=== PATIENT | female | born 1990 | race Caucasian/White ===

== ENCOUNTER → 2023-10-06 11:14 | Outpatient (CLI) | payer OTHER, SELFPAY ==
[2023-10-06 13:59] LABS: Progesterone, Total 7.36 ng/mL
== END ==
LOC: LAB 11:15
PROVIDERS: PCP Family Medicine; Referring Provider Obstetrics & Gynecology; Visit Provider Obstetrics & Gynecology
DX: Z87.42 Personal history of other diseases of the female genital tract (principal)
CPT/HCPCS: 36415; 84144

== ENCOUNTER → 2023-10-18 08:54 | Outpatient (CLI) | payer OTHER, SELFPAY ==
[2023-10-18 10:26] LABS: HCG Quantitative /Beta subunit 193.4 mIU/mL
== END ==
LOC: LAB 08:55
PROVIDERS: PCP Family Medicine; Referring Provider Obstetrics & Gynecology; Visit Provider Obstetrics & Gynecology
DX: Z87.42 Personal history of other diseases of the female genital tract (principal)
CPT/HCPCS: 36415; 84144; 84702

== ENCOUNTER → 2023-10-20 09:15 | Outpatient (CLI) | payer OTHER, SELFPAY ==
[2023-10-20 10:48] LABS: HCG Quantitative /Beta subunit 479.6 mIU/mL
== END ==
PROVIDERS: PCP Family Medicine; Referring Provider Obstetrics & Gynecology; Visit Provider Obstetrics & Gynecology
DX: Z87.42 Personal history of other diseases of the female genital tract (principal)
CPT/HCPCS: 36415; 84702

== ENCOUNTER → 2023-11-13 16:17 | Outpatient (CLI) | payer OTHER, SELFPAY ==
--- NOTE | 2023-11-13 16:17 | DI.US.S_ITS ---
PROCEDURE: US OB <= 14 WEEKS FETUS INDICATIONS: dating and viability OUTSIDE/PRIOR DATING DATA: Last menstrual period (LMP): 09/15/2023. LMP-based estimated date of delivery (CECE): 06/21/2024. First dating scan (date and location): 11/13/2023. Estimated date of delivery (CECE) from first dating scan: 06/25/2024. TECHNIQUE: Real-time scanning was performed of the fetus and maternal pelvic organs, with image documentation. Endovaginal scanning was also performed to better visualize the fetus and maternal ovaries. COMPARISON: None. FINDINGS: Embryo: Single live intrauterine is identified with crown-rump length measuring 1.6 cm corresponding to 7 weeks 6 days. Heart rate: 153 beats per minute Maternal organs: Ovaries within normal limits. IMPRESSION: Single live intrauterine with gestational age today of 7 weeks 6 days. Recommend followup imaging at 20-22 weeks for dates and anatomy. We strive to produce accurate, complete, and clear reports of imaging services. To assist us in improving patient care, this report was composed using standard report templates and voice recognition software. Therefore, it may contain abnormal punctuation, insertions and/or omissions. Occasional wrong-word or sound-alike substitutions may occur. Though we review the report and make efforts to correct it, we do recommend that the report be read carefully in proper context to recognize any text inaccuracies. Dictated by: Gaviota Wing M.D. on 11/14/2023 at 8:39 Approved by: Gaviota Wing M.D. on 11/14/2023 at 8:41
== END ==
PROVIDERS: PCP Family Medicine; Referring Provider Obstetrics & Gynecology; Visit Provider Obstetrics & Gynecology
DX: Z34.80 Encounter for supervision of other normal pregnancy, unspecified trimester (principal); Z3A.01 Less than 8 weeks gestation of pregnancy
CPT/HCPCS: 76801; 76830

== ENCOUNTER → 2023-12-13 16:13 | Outpatient (CLI) | payer OTHER, SELFPAY ==
[2023-12-14 14:35] LABS: Urine N gonorrhoeae NOT DETECTED
[2023-12-14 14:37] LABS: Urine Chlamydia NOT DETECTED
== END ==
PROVIDERS: PCP Family Medicine; Visit Provider Obstetrics & Gynecology
DX: Z34.81 Encounter for supervision of other normal pregnancy, first trimester (principal); Z11.3 Encounter for screening for infections with a predominantly sexual mode of transmission
CPT/HCPCS: 87491; 87591

== ENCOUNTER → 2023-12-13 16:17 | Outpatient (CLI) | payer OTHER, SELFPAY ==
[2023-12-13 17:27] LABS: Add Manual Diff / Slide Review NO; Basophils Absolute Auto 100 /uL (0-100); Basophils Percent Auto 0.7 % (0-2); Eosinophils Absolute Auto 100 /uL (0-450); Eosinophils Percent Auto 1.3 % (2-4); Hematocrit 34.9 % (36-46); Hemoglobin 12.2 g/dL (12.0-16.0); Lymphocytes Absolute Auto 3000 /uL (1100-4500); Lymphocytes Percent Auto 34.3 % (25-40); Mean Corpuscular HGB Conc 35.1 % (30-36); Mean Corpuscular Hemoglobin 31.8 PG (26-34); Mean Corpuscular Volume 90.5 fL (80-100); Monocytes Absolute Auto 700 /uL (0-900); Neutrophils Absolute Auto 4800 /uL (1500-7000); Neutrophils Percent Auto 55.7 % (50-75); Platelet Count 253 X10^3/uL (150-400); Red Blood Cell Count 3.86 X10^6/uL (4.0-5.2); Red Cell Distribution Width 12.9 % (11.6-14.8); White Blood Cell Count 8.7 X10^3/uL (4.5-11.0)
[2023-12-13 17:35] LABS: Natera Collection Specimen Collected
[2023-12-14 16:29] LABS: Hepatitis B Surface Antigen NEGATIVE s/c (NEGATIVE); Rubella Antibody IgG 40.5 IU/mL (>15)
[2023-12-14 16:45] LABS: HIV 1 & 2 Ab/Ag 4th Gen Combo NEGATIVE (NEGATIVE); Hep C Virus Ab w/Reflex Quant NEGATIVE s/c (NEGATIVE)
== END ==
PROVIDERS: PCP Family Medicine; Referring Provider Obstetrics & Gynecology; Visit Provider Obstetrics & Gynecology
DX: Z34.80 Encounter for supervision of other normal pregnancy, unspecified trimester (principal); Z34.81 Encounter for supervision of other normal pregnancy, first trimester; Z3A.12 12 weeks gestation of pregnancy
CPT/HCPCS: 36415; 80055; 86787; 86803; 86850; 86900; 86901; 87086; 87389

== ENCOUNTER → 2024-01-12 07:35 | Outpatient (CLI) | payer OTHER, SELFPAY | LOC: LAB 07:36 | PROVIDERS: PCP Family Medicine; Referring Provider Obstetrics & Gynecology; Visit Provider Obstetrics & Gynecology | DX: Z34.82 Encounter for supervision of other normal pregnancy, second trimester (principal); Z36.0 Encounter for antenatal screening for chromosomal anomalies; Z3A.16 16 weeks gestation of pregnancy | CPT/HCPCS: 36415; 82105 ==

== ENCOUNTER → 2024-02-08 14:23 | Outpatient (CLI) | payer OTHER, SELFPAY ==
--- NOTE | 2024-02-08 14:24 | DI.US.S_ITS ---
PROCEDURE: US OB >= 14 WEEKS FETUS INDICATIONS: 20 week anatomy OUTSIDE/PRIOR DATING DATA: Last menstrual period (LMP): 09/15/2023. LMP-based estimated date of delivery (CECE): 06/21/2024. First dating scan (date and location): 11/13/2023. Estimated date of delivery (CECE) from first dating scan: 06/25/2024. TECHNIQUE: Real-time scanning was performed of the fetus, with image documentation and biometric measurements. Endovaginal scanning: Not performed COMPARISON: 11/13/2023. FINDINGS: General: A single living intrauterine gestation is present. Presentation: Vertex. Placenta: Placental position is anterior , without previa. Amniotic fluid index: 16.2 cm, normal range is 5-24 cm. Single deepest vertical pocket is 4.9 cm. heart rate: 132 beats per minute. Maternal cervical canal: 4 cm long. Normal lower limit is 2.5 cm. biometrics: Biparietal diameter: 4.8 centimeter, 20 weeks 3 days Head circumference: 17.8 centimeters, 20 weeks 2 days Abdominal circumference: 16.3 centimeters, 21 weeks 2 days Femur length: 3.2 centimeters, 20 weeks 1 day Clinically estimated gestational age: 20 weeks 6 days Composite gestational age from present scan: 20 weeks 4 days Estimated weight and percentile: 373 grams, 38th percentile Anatomic survey: Neuro: Ventricles are non-dilated at less than 10 mm. Cisterna magna is normal at 3-11 mm. Cerebellum is normal in size and morphology. Nuchal skin fold: Normal at less than 6 mm between 14-21 weeks gestational age. Face: Nose and lips, facial profile are normal. Spine: No evidence for spina bifida. Heart: 4-chambered heart is present, with normal ventricular outflow tracts. Diaphragm: Diaphragm is intact. Stomach: Left-sided stomach is present. Kidneys: No hydronephrosis. Normal is less than 5 mm in 2nd trimester, less than 7 mm in 3rd trimester. Cord: 3-vessel cord has orthotopic insertion. Bladder: Normal in size. Extremities: All 4 extremities identified. IMPRESSION: Single living intrauterine . Normal anatomy survey. Estimated weight of 373 grams, 38th percentile. We strive to produce accurate, complete, and clear reports of imaging services. To assist us in improving patient care, this report was composed using standard report templates and voice recognition software. Therefore, it may contain abnormal punctuation, insertions and/or omissions. Occasional wrong-word or sound-alike substitutions may occur. Though we review the report and make efforts to correct it, we do recommend that the report be read carefully in proper context to recognize any text inaccuracies. Dictated by: Arley Arriaga M.D. on 02/08/2024 at 17:28 Approved by: Arley Arriaga M.D. on 02/08/2024 at 17:30
== END ==
PROVIDERS: PCP Family Medicine; Referring Provider Obstetrics & Gynecology; Visit Provider Obstetrics & Gynecology
DX: Z34.82 Encounter for supervision of other normal pregnancy, second trimester (principal); Z3A.20 20 weeks gestation of pregnancy
CPT/HCPCS: 76811

== ENCOUNTER → 2024-03-27 08:12 | Outpatient (CLI) | payer OTHER, SELFPAY ==
[2024-03-27 10:10] LABS: Hematocrit 32.4 % (36-46); Hemoglobin 11.6 g/dL (12.0-16.0)
[2024-03-27 10:21] LABS: GTT (PREG) 1 Hour PP 50gm Dose 80 mg/dL (76-139)
== END ==
PROVIDERS: Obstetrics & Gynecology; PCP Family Medicine; Referring Provider Obstetrics & Gynecology; Visit Provider Obstetrics & Gynecology
DX: O26.899 Other specified pregnancy related conditions, unspecified trimester (principal); Z3A.26 26 weeks gestation of pregnancy; Z67.91 Unspecified blood type, Rh negative
CPT/HCPCS: 36415; 82950; 85014; 85018; 86850

== ENCOUNTER → 2024-06-11 08:42 | Outpatient (CLI) | payer OTHER, SELFPAY | PROVIDERS: PCP Family Medicine; Visit Provider Obstetrics & Gynecology | DX: R82.998 Other abnormal findings in urine (principal) | CPT/HCPCS: 87077; 87086; 87147 ==

== ENCOUNTER 2024-06-19 00:45 | Inpatient (IN) | payer OTHER, SELFPAY ==
[2024-06-19] MEDS: AMPICILLIN 2,000 MG in SODIUM CHLORIDE 0.9% 100 ML 200 MG IV (01:33)
[2024-06-19] MEDS: LACTATED RINGERS 1,000 ML 100 ML IV (01:33)
[2024-06-19 01:41] VITALS: BP 115/73
[2024-06-19 01:41] LABS: Add Manual Diff / Slide Review NO; Basophils Absolute Auto 100 /uL (0-100); Eosinophils Absolute Auto 100 /uL (0-450); Eosinophils Percent Auto 1.5 % (2-4); Hematocrit 34.1 % (36-46); Hemoglobin 11.9 g/dL (12.0-16.0); Lymphocytes Absolute Auto 2000 /uL (1100-4500); Lymphocytes Percent Auto 25.3 % (25-40); Mean Corpuscular HGB Conc 34.8 % (30-36); Mean Corpuscular Hemoglobin 32.8 PG (26-34); Mean Corpuscular Volume 94.2 fL (80-100); Monocytes Absolute Auto 700 /uL (0-900); Monocytes Percent Auto 8.2 % (3-14); Neutrophils Absolute Auto 5200 /uL (1500-7000); Platelet Count 294 X10^3/uL (150-400); Red Blood Cell Count 3.62 X10^6/uL (4.0-5.2)
[2024-06-19] MEDS: LACTATED RINGERS 500 ML 1000 ML IV (05:22)
[2024-06-19] MEDS: AMPICILLIN 1,000 MG in SODIUM CHLORIDE 0.9% 100 ML 200 MG IV (06:23)
[2024-06-19] MEDS: FENT 2MCG/ML BUPIV 0.125% EPI 200 MCG/100 ML PLAST..BAG 6 MCG EPIDURAL (06:30)
--- NOTE | 2024-06-19 06:35 | PM.AN.REGBLK ---
Regional Block Pre-procedure PMH/ROS narrative: Healthy 34yr old requesting CSE for labor PSH/Anesthesia history narrative: parotid tumor excision and w.t. ASA Class: II Labs: Hct 34.1 % (36-46) L 06/19/24 01:22 Plt Count 294 X10^3/uL (150-400) 06/19/24 01:22 Medications: Current Medications Generic Name Dose Route Start Last Admin Trade Name Freq PRN Reason Stop Dose Admin Calcium Carbonate 1,000 mg 06/19/24 01:05 Calcium Carbonate 500 Mg Tab PO Q2HR PRN Dyspepsia Carboprost Tromethamine 250 mcg 06/19/24 01:05 Carboprost 250 Mcg/Ml Ampul IM Q90M PRN Bleeding Fentanyl 100 mcg 06/19/24 01:05 Fentanyl 100 Mcg/2 Ml Inj IV Q1H PRN Pain, Severe (7-10) Lactated Ringer's 1,000 mls @ 100 mls/hr 06/19/24 01:15 06/19/24 01:33 Lactated Ringers IV 06/19/24 11:14 100 mls/hr CONT PAUL Administration Oxytocin/Lactated Ringer's 30 unit in 500 mls @ 200 mls/hr 06/19/24 01:05 Oxytocin Premix IV CONT PRN Bleeding Protocol Tranexamic Acid 1,000 mg/ 100 mls @ 600 mls/hr 06/19/24 01:05 Sodium Chloride IV NOW PRN Bleeding Ampicillin Sodium 1,000 mg/ 100 mls @ 200 mls/hr 06/19/24 01:15 06/19/24 06:23 Sodium Chloride IV 200 mls/hr Q4H PAUL Administration Lidocaine HCl 20 ml 06/19/24 01:05 Lidocaine 1% 20 Ml INJ INTRA-OP PRN Post Delivery Methylergonovine Maleate 0.2 mg 06/19/24 01:05 Methylergonovine 0.2 Mg Tablet PO Q6HR PRN Heavy Bleeding Methylergonovine Maleate 0.2 mg 06/19/24 01:05 Methylergonovine 0.2 Mg/Ml Vial IM NOW PRN Bleeding Mineral Oil 30 ml 06/19/24 01:05 Mineral Oil 30 Ml Udc TOP PRN PRN Version Misoprostol 800 mcg 06/19/24 01:05 Misoprostol 200 Mcg Tablet OK NOW PRN Bleeding Misoprostol 400 mcg 06/19/24 01:05 Misoprostol 200 Mcg Tablet SL NOW PRN Bleeding Naloxone HCl 0.2 mg 06/19/24 01:05 Naloxone 0.4 Mg/Ml Vial IV Q2MIN PRN Opiate Reversal Ondansetron HCl 4 mg 06/19/24 01:05 Ondansetron 4 Mg/2 Ml Inj IV Q4HR PRN Nausea And Vomiting Oxytocin 10 unit 06/19/24 01:05 Oxytocin 10 Unit/Ml Vial IM NOW PRN Bleeding Allergies: Allergies Allergy/AdvReac Type Severity Reaction Status Date / Time No Known Drug Allergies Allergy Verified 06/19/24 02:51 --: Paresthesia with catheter placement. Turned catheter and pulled back once needle out and paresthesia disappeared Procedure Insertion date: 06/19/24 Insertion time: 06:11 Prep/Local: 1% lidocaine (chloroprep) Interspace: L3-4 Patient position: sitting Needle: 18 gauge Augustin Loss of resistance with: saline FRANCISCO at (cm): 7 Catheter placed at SKIN (cm): 13 Catheter in SPACE (cm): 6 Insertion: No Blood, No Paresthesia with insertion, No Paresthesia with injection and No Test dose reaction Initial Medications TEST DOSE time: 06:09 BOLUS DOSE time: 06:18 BOLUS DOSE (mL): 5 BOLUS DOSE med: 0.25% bupivacaine Infusion INFUSION: 0.125% bupivacaine and with fentanyl 2 mcg/mL Initial rate (mL/hr): 8 Subsequent interventions: 0650 4cc .25% marcaine 0725 5cc 2% lidocaine Post-procedure Anesthesia date START: 06/19/24 Anesthesia time START: 05:50 Anesthesia date END: 06/20/24 Anesthesia time END: 08:24 Post-procedure Anesthesia Assessment: Yes CV function: HR/BP stable, Yes Resp function: RR/sat/airway adequate, Yes Post-op hydration adequate, Yes Pain control adequate, Yes Nausea & vomiting absent, Yes Temperature > 36 C and Yes Mental status appropriate
[2024-06-19] MEDS: OXYTOCIN PREMIX 30 UNIT/500 ML PLAST..BAG 500 UNIT IV (08:30)
--- NOTE | 2024-06-19 08:56 | PM.OBHP.1 ---
OB HPI Date/Time Date of admission: 06/19/24 Date Patient Seen: 06/19/24 Time Patient Seen: 08:05 History of Present Condition Chief complaint: IUP, 39+0, SROM, GBS+, Rh- : 2 Para: 1 Estimated Date of Delivery: 06/26/24 Estimated Gestational Age (weeks): 39+0 Narrative: Shahnaz Colon is a 34 year old , admitted now at 39 weeks gestational age with spontaneous rupture of membranes with clear fluid shortly after midnight 06/18 - 06/19/2024. Patient has started having some irregular contractions and baby is doing well on the monitor. Patient's course has been largely uneventful with solid early dating and appropriate milestones throughout. She is Rh negative and received 28 week RhoGAM. She had a urine culture earlier in the which was positive for group B strep and is therefore presumed to be GBS positive. History of Present care: good care Dating criteria: LMP confirmed by 1st trimester US Ultrasounds: normal 1st trimester US and normal mid trimester US Obstetrical complications: none Medical complications: none Preadmission Labs Blood type: A (-) negative -: Antibody screen: positive (Due to RhoGAM), GBS status: positive, HBsAG: negative, HIV: negative and RPR/VDLR: negative -: Chlamydia screen: not detected and Gonorrhea screen: not detected -: Rubella: immune and Varicella: immune HCT: 34.1 HCAB: negative PAP: Normal Quad screen: Normal (AFP testing negative) Cell-free DNA: Low risk female 1 hr GTT: 80 Prior (ies) History: x1 Hx # Term Pregnancies: 1 Hx # Pregnancies: 0 Number of Living Children: 0 Multiple births: 0 Spontaneous abortions: 0 Ectopic pregnancies: 0 Elective abortions: 0 Evaluation Evaluation Baseline heart rate: 125 Variability: Moderate (11-25) monitor accelerations: Present Monitor Decelerations: Absent Contraction Frequency (minutes): 6 Uterine Contraction Intensity: Mild Category of Tracing: Reactive Status: Category l Dilation (cm): 10 (0750, 06/19/2024) Effacement (%): 100 Dilation: >/=5 cm Effacement: >/=80% station: +2 Position of cervix: anterior Consistency: soft Diehl score: 13 Non-invasive Membranes Rupture Test: positive [facility] Medical History (Updated 01/10/24 @ 08:21 by Ismael Mckoy MD) Wears contact lenses Chicken pox (~1991) Irregular menstrual cycle (~2020) Infertility (~2020) Surgical History (Updated 10/31/23 @ 11:02 by Hilda Silveira, LEONID) History of removal of skin mole Anesthesia Tumor of parotid gland (~2006) [facility] teeth removed (~2007) Family History (Updated 10/31/23 @ 11:05 by Hilda Silveira RN) Sister Congenital heart defect Grandfather Dementia Grandmother Parkinson's disease Grandfather Leukemia Grandmother Hyperlipidemia Dementia Social History marital status: number of children: 1 household members: children lives independently: Yes caregiver/support person: Yes housing: house pets and animals: No education level: master's degree occupational status: employed (works from home) current occupational exposures/hazards: No special jagruti needs: No travel history: recent ([place]) seatbelt use: always water heater temp set < 120 deg: Yes working smoke detector in home: Yes fire extinguisher in home: Yes carbon monox detector in home: Yes firearms in home: Yes firearms unloaded and locked: Yes do you feel safe at home: Yes Smoking Status: Never smoker second hand exposure: No alcohol intake: former (occasionally when not ) substance use type: does not use during the past year weight has: other (Back to pre-baby weight (daughter is 13 months old)) well-balanced diet: daily or most days daily servings fruits/ve or more times/day caffeine: Yes (Aware of 200mg limit) Type(s) of exercise: walking and weight lifting frequency: 5-6 times per week Meds Home Medications and Allergies Home Medications Medication Instructions Recorded Confirmed Type breast pump #1 ea 04/02/24 06/19/24 Rx breast pump #1 ea 04/02/24 06/19/24 Rx vit no.95-ferrous 1 tab PO DAILY 06/19/24 06/19/24 History fumarate 28 mg-folic acid 800 mcg tablet () Allergies Allergy/AdvReac Type Severity Reaction Status Date / Time No Known Drug Allergies Allergy Verified 06/19/24 02:51 Review of Systems Review of Systems Narrative: Problem-specific ROS positives included in HPI OB Exam Vital signs Blood Pressure: 115/73 Pulse Rate: 97 Respiratory Rate: 16 Temperature: 98.8 F [facility] Head: normal to inspection, normocephalic and atraumatic Eyes General: appearance normal, both eyes and all related structures Resp Effort & Inspection: normal respiratory effort and able to speak in complete sentences Auscultation: clear to auscultation bilaterally Cardio Rate: regular rate Rhythm: regular rhythm Heart Sounds: S1 normal, S2 normal and no murmurs Extremities Lower extremity: Yes normal to inspection GI Inspection: normal to inspection Palpation: Yes soft and Yes no hepatosplenomegaly Uterus Location (Fundal Height): 36 Estimated Weight (lbs): 7 Amniotic Fluid: clear Objective Labs 06/19/24 01:22 Labs: Laboratory Results - last 24 hr 06/19/24 01:22 WBC 8.0 RBC 3.62 L Hgb 11.9 L Hct 34.1 L MCV 94.2 MCH 32.8 MCHC 34.8 RDW 13.0 Plt Count 294 Neut % (Auto) 64.0 Lymph % (Auto) 25.3 [place] % (Auto) 8.2 Eos % (Auto) 1.5 L Baso % (Auto) 1.0 Neut # (Auto) 5200 Lymph # (Auto) 2000 [place] # (Auto) 700 Eos # (Auto) 100 Baso # (Auto) 100 Blood Type A Negative Antibody Screen Negative Assessment and Plan Assessment and Plan Assessment and Plan narrative: ASSESSMENT 1. Intrauterine , 39+ 0 weeks gestational age with SROM clear fluid 2. GBS positive status 3. Rh-negative status 4. Anemia in PLAN 1. Admit for labor and delivery 2. JAYNE as desired 3. See admission orders Time-Based Coding :: [TOTAL MINUTES] spent with patient and on the chart (including review of chart, obtaining history, exam, reviewing outside data, placing orders, documenting exam and treatment plan, and counseling patient) on [DATE].
--- NOTE | 2024-06-19 08:57 | P.PCNOB_ITS ---
Labor & Delivery Delivery date: 06/19/24 Delivery Time: 08:24 Intrapartal Events: None Cervical ripening method: none Induction method: none Delivery monitor: external FHT and external uterine Route of delivery: Episiotomy description: None L&D Laceration Description: Periurethral - 1st Degree and Perineal - 2nd Degree Delivery repair: chromic Estimated blood loss (mL): 350 Anesthesia Type: Epidural Complications: None Narrative: Following a 30 minutes 2nd stage, the patient delivered spontaneously over an intact perineum a viable female infant with Apgars of 8/9 and a weight of 3413 g (7 lb 8.4 oz). The father assisted with delivery the infant and announced the gender of the baby which was unknown to the point. No cord entanglement or shoulder dystocia was noted. Skin to skin contact was initiated immediately and delayed cord clamping performed. Once the umbilical cord was doubly clamped and cut, cord blood sample was obtained for routine studies. The placenta was then delivered with gentle cord traction and suprapubic countertraction. Inspection of the placenta showed it to be intact with central insertion of a three-vessel cord. Inspection the introitus showed a very superficial right-sided periurethral abrasion and a superficial second- degree perineal laceration. The perineal laceration was transverse and immediately inside of the vaginal introitus. Because of the location and nature of the laceration, ago P retractor was placed so as to fully BM visualize the laceration in the face of what was significant venous bleeding. The laceration was closed with 2-0 chromic in a running interlocking stitch and 3 additional puagks-it-zhums stitches of 2-0 chromic used to render the laceration completely hemostatic. Sponge, instrument, and needle count was correct at the end of the delivery process which was well tolerated by both mother and baby. [place] Baby 1: gender: Female Presentation: vertex Position: Left Occiput Anterior Placenta delivery description: Spontaneous Cord Vessel Description: 3 Vessels score (1 min): 8 score (5 min): 9 weight: 7 lb 8.39 oz Plan for aftercare: Routine care
[2024-06-19] MEDS: WITCH HAZEL/GLYCERIN PADS 1 EACH TOP (11:06)
[2024-06-19] MEDS: LANOLIN OINT 7 GM 1 APPLIC TOP (11:06)
[2024-06-19] MEDS: IBUPROFEN 600 MG TABLET PO ×2 (11:07→17:16)
[2024-06-19 16:20] VITALS: BP 115/73; PULSE 97; RESP 16; TEMP 37.1
[2024-06-20 06:21] LABS: Add Manual Diff / Slide Review NO; Basophils Absolute Auto 0 /uL (0-100); Basophils Percent Auto 0.5 % (0-2); Eosinophils Absolute Auto 100 /uL (0-450); Hematocrit 31.1 % (36-46); Hemoglobin 10.8 g/dL (12.0-16.0); Lymphocytes Absolute Auto 2500 /uL (1100-4500); Lymphocytes Percent Auto 25.3 % (25-40); Mean Corpuscular HGB Conc 34.7 % (30-36); Mean Corpuscular Hemoglobin 33.2 PG (26-34); Mean Corpuscular Volume 95.5 fL (80-100); Monocytes Absolute Auto 800 /uL (0-900); Monocytes Percent Auto 8.1 % (3-14); Neutrophils Absolute Auto 6300 /uL (1500-7000); Neutrophils Percent Auto 65.1 % (50-75); Platelet Count 270 X10^3/uL (150-400); Red Blood Cell Count 3.26 X10^6/uL (4.0-5.2); Red Cell Distribution Width 13.1 % (11.6-14.8); White Blood Cell Count 9.7 X10^3/uL (4.5-11.0)
--- NOTE | 2024-06-20 08:42 | P.DS_ITS ---
Discharge Providers Provider Date of admission: 06/19/24 00:45 Discharge Date: 06/20/24 Primary care physician: Karissa Horan DO Consults: 06/19/24 01:06 Consult to Anesthesiology Urgent Comment: Consulting Provider: Anesthesiologist Reason for consultation: Epidural 06/20/24 08:52 Consult to [employer] Routine Comment: Discharge provider: Ismael Mckoy MD Summary Hospital Course Date Patient Seen: 06/20/24 Time Patient Seen: 08:42 Diagnoses: Intrauterine gestation, 39+ 0 weeks, delivered by spontaneous vaginal Rh-negative status GBS positive status Hospital Course: Shahnaz was admitted with spontaneous rupture membranes in the early hours of 06/19/2024. No augmentation was required and she had an epidural placed prior to delivery at 8:24 a.m. a viable and vigorous female with a weight 3413 g (7 lb 8.7 oz) and Apgars of 8/9. Full details of the delivery are well summarized on my delivery note of that date. Following delivery both mother and baby have done extremely well with the mother experiencing prompt return of bowel and bladder function, she is ambulating independently, tolerating regular diet, and her pain is well relieved with oral pain medications. She will be discharged at this time to home after counseling regarding precautionary symptoms, limitations of activity, medications, plans for follow-up which will be in 6 weeks. Medications at discharge will include resumption of vitamins and she will use [id number] Tylenol and/or ibuprofen as needed for pain relief. Peripartum Data Infant Delivery Method: Natural Vaginal Laceration Description: Periurethral - 1st Degree and Perineal - 2nd Degree Episiotomy description: None Procedures: Continuous lumbar epidural Spontaneous vaginal with repair of second-degree perineal laceration complications: none 1: Gender: Female Disposition of : home Status at Discharge Cognitive/behavioral status at discharge: oriented Functional status at discharge: independent ambulation Overall status at discharge: patient is progressing back to baseline Time Spent with Patient Time attestation: Total time spent providing and/or coordinating discharge services: Time spent: Less than 30 minutes Objective Labs 06/20/24 06:01 Labs: Laboratory Results - last 24 hr 06/20/24 06:01 WBC 9.7 RBC 3.26 L Hgb 10.8 L Hct 31.1 L MCV 95.5 MCH 33.2 MCHC 34.7 RDW 13.1 Plt Count 270 Neut % (Auto) 65.1 Lymph % (Auto) 25.3 [place] % (Auto) 8.1 Eos % (Auto) 1.0 L Baso % (Auto) 0.5 Neut # (Auto) 6300 Lymph # (Auto) 2500 [place] # (Auto) 800 Eos # (Auto) 100 Baso # (Auto) 0 Maternal Bleed Negative Exam Const General: cooperative and comfortable Nutritional Appearance: average body habitus Orientation: alert and oriented x3 HENMT Head: normal to inspection, atraumatic and abrasion Face and sinus: face symmetric Eyes General: appearance normal, both eyes and all related structures Conjunctivae: conjunctivae normal Sclera: sclerae normal EOM: EOM intact bilaterally Neck Neck: normal visual inspection Resp Effort & Inspection: normal respiratory effort and able to speak in complete sentences GI Inspection: normal to inspection External Female Exam: other (No significant bleeding noted) Extrem General: no calf tenderness Psych Appearance: grossly normal Mental Status: mental status grossly normal Speech and Movement: speech and movement normal Mood: congruent mood Affect: normal affect Attitude: cooperative Thought Process: normal Thought Content: normal Judgment: judgment good Discharge Plan Discharge Plan Patient Disposition: Home Provider Discharge Comment: Please review the written instructions you received when you were discharged from the hospital. Your follow-up appointment is scheduled for 6 weeks after delivery and I forward to seeing you then. If however in the any issues, concerns, or questions, please contact me either through the office phone at [phone], or via the patient portal. Discharge orders & Medications Prescriptions: Continued (DME) breast pump Device See Rx Instructions .ROUTE .MEDSUPPLY Qty: 1 0RF Rx Instructions: double electric (DME) breast pump Device See Rx Instructions .ROUTE .MEDSUPPLY Qty: 1 0RF Rx Instructions: double electric PNV cmb#95-ferrous fumarate-FA [] 28 mg iron- 800 mcg Tablet 1 tab PO DAILY Follow up/Referrals: Ismael Mckoy MD [Physician] - 6 Weeks ([address] Mckoy on July 31 at 0900 am. ) Discharge Health Status Multidrug resistant organism: No MDRO Diet/Activity/Treatments Diet: Diet as Tolerated Activity: As tolerated Other treatments: Syee-ang-njajvgc Tylenol and/or ibuprofen may be used as needed for pain relief. Akcy-zeu-jazndlk stool softeners and/or MiraLax may be used as needed for constipation. Skin/Wound/Dressing Care Report to your healthcare provider any signs of infection, such as:: chills, fever, increased pain, unusual drainage and unusual redness Dressing: N/A Visit Report/Discharge Packet Instructions: Fitness, DI for Labor and Delivery, Vaginal , DI for and Nipple Soreness Stand Alone Forms: Discharge: Care Discharge Data Primary Care Provider: Karissa Horan
[2024-06-20] MEDS: RHO(D) IMMUNE GLOBULIN 1,500 UNIT SYRINGE 1500 UNIT IM (09:06)
== END 2024-06-20 09:27 | disposition home or self-care (01) | DRG 807 ==
PROVIDERS: Admitting Provider Obstetrics & Gynecology; PCP Family Medicine; Referring Provider Obstetrics & Gynecology; Visit Provider Obstetrics & Gynecology
DX: O42.02 Full-term premature rupture of membranes, onset of labor within 24 hours of rupture (principal); Z37.0 Single live birth; O99.824 Streptococcus B carrier state complicating childbirth; Z3A.39 39 weeks gestation of pregnancy; O70.1 Second degree perineal laceration during delivery
CPT/HCPCS: 36415; 59050; 59400; 85025; 85461; 86850; 86900; 86901; G0379; J0290; J2590; J2790